=== PATIENT | male | born 1945 | race Caucasian/White ===

== ENCOUNTER 2021-09-23 16:54 | Inpatient (IN) ==
[2021-09-23 19:41] LABS: Basophils % 0.4 %; Eosinophils # 0.1 K/mcL (0.0-0.6); Eosinophils % 2.2 %; Hematocrit 22.3 % (37.5-50.1); Hemoglobin 6.6 g/dL (12.9-16.9); Immature Granulocytes % 0.4 % (0-4); Lymphocytes # 0.9 K/mcL (0.6-4.6); Lymphocytes % 16.8 %; Mean Corpuscular HGB Conc 29.6 g/dL (31.6-35.5); Mean Corpuscular Hemoglobin 27.5 pg (28.0-33.3); Mean Corpuscular Volume 92.9 fL (83.0-100.0); Mean Platelet Volume 11.7 fL (9.4-12.4); Monocytes # 0.7 K/mcL (0.0-1.3); Monocytes % 12.8 %; Neutrophils # 3.7 K/mcL (1.6-8.9); Platelet Count 186 K/mcL (140-400); Red Cell Distribution Width 15.1 % (11.5-14.5); Segmented Neutrophils % 67.4 %; White Blood Count 5.5 K/mcL (4.3-11.1)
[2021-09-23 19:51] LABS: INR 1.6; Prothrombin Time 18.2 Seconds (9.4-12.1)
[2021-09-23 19:53] LABS: Activated Partial Thrombo Time 32.3 Seconds (26.0-36.0)
[2021-09-23 20:12] LABS: Albumin 3.8 g/dL (3.5-5.7); Albumin/Globulin Ratio 1.2 (1.1-2.2); Bilirubin,Total 0.4 mg/dL (0.3-1.0); Calcium 9.5 mg/dL (8.6-10.3); Globulin 3.1 g/dL (2.4-3.5); Potassium 4.4 mEq/L (3.5-5.1); Total Protein 6.9 g/dL (6.4-8.9); Troponin I 0.08 ng/mL (< 0.04)
[2021-09-23] MEDS ORDERED: Perflutren Lipid Microsphere 1.3 ML in 0.9 % Sodium Chloride 8.7 ML IVP PRN (22:33)
[2021-09-23] MEDS ORDERED: Acetaminophen 325 MG TABLET PO PRN (22:35)
[2021-09-23] MEDS ORDERED: Naloxone 0.4 MG/ML INJ IVP PRN (22:35)
[2021-09-23] MEDS ORDERED: Ondansetron 4 MG/2 ML VIAL IVP PRN (22:35)
[2021-09-23] MEDS ORDERED: 0.9 % Sodium Chloride 250 ML ONE (22:43)
[2021-09-24 02:07] LABS: Potassium,Urine 42.6 mEq/L; Sodium, Urine 115.8 mEq/L
[2021-09-24 02:14] LABS: Bilirubin,Urine Negative (Negative); Blood,Urine Negative (Negative); Clarity,Urine Clear (Clear); Color,Urine Light-Yellow (Yellow); Glucose,Urine (UA) Normal (Normal); Ketones,Urine Negative (Negative); Leukocyte Esterase,Urine Moderate (Negative); Mucus,Urine Few per lpf (None-Few); Nitrite,Urine Negative (Negative); Protein,Urine 70 mg/dL (Neg-Trace); RBC,Urine 0-3 per hpf (0-3); Specific Gravity,Urine 1.018 (1.010-1.025); Squamous Epithelial Cell,Urine Few per hpf (None-Few); WBC,Urine 50-100 per hpf (0-3)
[2021-09-24 02:39] LABS: Basophils % 0.4 %; Eosinophils # 0.1 K/mcL (0.0-0.6); Eosinophils % 1.6 %; Hematocrit 21.5 % (37.5-50.1); Hemoglobin 6.4 g/dL (12.9-16.9); Immature Granulocytes % 0.2 % (0-4); Lymphocytes # 0.9 K/mcL (0.6-4.6); Lymphocytes % 16.9 %; Mean Corpuscular HGB Conc 29.8 g/dL (31.6-35.5); Mean Corpuscular Hemoglobin 26.7 pg (28.0-33.3); Mean Corpuscular Volume 89.6 fL (83.0-100.0); Mean Platelet Volume 11.5 fL (9.4-12.4); Monocytes # 0.7 K/mcL (0.0-1.3); Monocytes % 12.1 %; Neutrophils # 3.8 K/mcL (1.6-8.9); Platelet Count 177 K/mcL (140-400); Red Cell Distribution Width 15.3 % (11.5-14.5); Segmented Neutrophils % 68.8 %; White Blood Count 5.6 K/mcL (4.3-11.1)
[2021-09-24 02:47] LABS: INR 1.5; Prothrombin Time 17.1 Seconds (9.4-12.1)
[2021-09-24 02:56] LABS: % Iron Saturation 15 % (20-55); BUN/Creatinine Ratio 21 (6-26); Blood Urea Nitrogen 44 mg/dL (8-23); Calcium 9.2 mg/dL (8.6-10.3); Carbon Dioxide 27 mEq/L (23-29); Chloride 108 mEq/L (98-107); Chol/HDL Ratio 2.8 (0-4.9); Cholesterol 107 mg/dL (< 200); Glucose 109 mg/dL (70-105); HDL Cholesterol 38 mg/dL (40-59); Iron 57 mcg/dL (65-175); LDL Cholesterol,Calculated 58 mg/dL (< 100); Lactate Dehydrogenase 191 Units/L (140-271); Osmolality,Calculated 304 (280-300); Potassium 4.4 mEq/L (3.5-5.1); Sodium 141 mEq/L (136-145); Transferrin 276 mg/dL (203-362); Triglycerides 55 mg/dL (< 150); eGFR For African Americans 38 (> 60); eGFR For Non-African Americans 31 (> 60)
[2021-09-24 03:10] LABS: Thyroid Stimulating Hormone 1.534 mcIU/mL (0.340-5.600)
[2021-09-24 03:21] LABS: Ferritin < 8 ng/mL (20-250)
[2021-09-24 04:17] LABS: Estimated Average Glucose 123 mg/dl; Hemoglobin A1C 5.9 %
[2021-09-24] MEDS ORDERED: *HR* Metoprolol 5 MG/5 ML VIAL IVP ONE (05:27)
[2021-09-24 06:17] LABS: Basophils % 0.4 %; Eosinophils # 0.1 K/mcL (0.0-0.6); Eosinophils % 1.3 %; Hematocrit 23.8 % (37.5-50.1); Immature Granulocytes % 0.1 % (0-4); Lymphocytes # 1.2 K/mcL (0.6-4.6); Lymphocytes % 16.5 %; Mean Corpuscular HGB Conc 29.4 g/dL (31.6-35.5); Mean Corpuscular Hemoglobin 26.5 pg (28.0-33.3); Mean Corpuscular Volume 90.2 fL (83.0-100.0); Mean Platelet Volume 11.9 fL (9.4-12.4); Monocytes # 1.1 K/mcL (0.0-1.3); Monocytes % 15.7 %; Neutrophils # 4.7 K/mcL (1.6-8.9); Platelet Count 183 K/mcL (140-400); Red Blood Count 2.64 M/mcL (4.19-5.50); Red Cell Distribution Width 15.8 % (11.5-14.5); White Blood Count 7.1 K/mcL (4.3-11.1)
[2021-09-24] MEDS ORDERED: *HR* Heparin 5,000 UNIT/ML VIAL IVP PRN ×2 (06:31)
[2021-09-24] MEDS ORDERED: Heparin 25,000UNIT/250ML 1/2NS 25,000 UNIT/250 ML IV.SOLN IVC SCH ×3 (06:45→07:00)
[2021-09-24] MEDS ORDERED: Apixaban 5 MG TABLET PO SCH (09:00)
[2021-09-24 09:06] LABS: Hematocrit 23.8 % (37.5-50.1); Hemoglobin 7.3 g/dL (12.9-16.9); Mean Corpuscular HGB Conc 30.7 g/dL (31.6-35.5); Mean Corpuscular Hemoglobin 27.1 pg (28.0-33.3); Mean Corpuscular Volume 88.5 fL (83.0-100.0); Platelet Count 193 K/mcL (140-400); Red Blood Count 2.69 M/mcL (4.19-5.50); White Blood Count 7.2 K/mcL (4.3-11.1)
[2021-09-24] MEDS: Iron Sucrose Complex 400 MG in 0.9 % Sodium Chloride 250 ML IVPB SCH (09:11)
[2021-09-24] MEDS: Aspirin Enteric Coated 81 MG Tablet PO SCH (09:15)
[2021-09-24] MEDS: Pantoprazole 40 MG VIAL IVP SCH (09:18)
[2021-09-24] MEDS ORDERED: 0.9 % Sodium Chloride 250 ML ONE (10:56)
[2021-09-24] MEDS: Furosemide 40 MG/4 ML VIAL IVP SCH (12:26)
[2021-09-24] MEDS: carvediloL 6.25 MG TABLET PO SCH (16:10)
[2021-09-24] MEDS: amLODIPine 5 MG TABLET PO SCH (16:10)
[2021-09-24 16:49] LABS: Hemoglobin 7.7 g/dL (12.9-16.9)
[2021-09-25 05:42] LABS: Hematocrit 25.7 % (37.5-50.1); Mean Corpuscular HGB Conc 31.1 g/dL (31.6-35.5); Mean Corpuscular Hemoglobin 27.7 pg (28.0-33.3); Mean Corpuscular Volume 88.9 fL (83.0-100.0); Mean Platelet Volume 11.9 fL (9.4-12.4); Platelet Count 178 K/mcL (140-400); Red Blood Count 2.89 M/mcL (4.19-5.50); Red Cell Distribution Width 15.8 % (11.5-14.5); White Blood Count 7.7 K/mcL (4.3-11.1)
[2021-09-25 06:23] LABS: Folate 14.2 ng/mL (3.0-16.0)
[2021-09-25 06:39] LABS: Calcium 9.5 mg/dL (8.6-10.3)
[2021-09-25] MEDS: amLODIPine 5 MG TABLET PO SCH (08:15)
[2021-09-25] MEDS: Aspirin Enteric Coated 81 MG Tablet PO SCH (08:15)
[2021-09-25] MEDS: carvediloL 6.25 MG TABLET PO SCH ×2 (08:15→17:18)
[2021-09-25] MEDS: Pantoprazole 40 MG VIAL IVP SCH (08:15)
[2021-09-25] MEDS: Furosemide 40 MG/4 ML VIAL IVP SCH (08:15)
[2021-09-25] MEDS: Iron Sucrose Complex 400 MG in 0.9 % Sodium Chloride 250 ML IVPB SCH (10:48)
[2021-09-25] MEDS: Cyanocobalamin (B-12) 1,000 MCG/ML VIAL SQ SCH (11:00)
[2021-09-25] MEDS ORDERED: SODIUM CHLORIDE/NAHCO3/KCL/PEG 4,000 ML SOLN.RECON PO ONE (17:31)
[2021-09-26 06:24] LABS: Hematocrit 27.9 % (37.5-50.1); Hemoglobin 8.5 g/dL (12.9-16.9); Mean Corpuscular HGB Conc 30.5 g/dL (31.6-35.5); Mean Corpuscular Hemoglobin 27.1 pg (28.0-33.3); Mean Corpuscular Volume 88.9 fL (83.0-100.0); Mean Platelet Volume 12.1 fL (9.4-12.4); Platelet Count 183 K/mcL (140-400); Red Blood Count 3.14 M/mcL (4.19-5.50); Red Cell Distribution Width 15.3 % (11.5-14.5); White Blood Count 8.2 K/mcL (4.3-11.1)
[2021-09-26 06:46] LABS: Calcium 9.6 mg/dL (8.6-10.3); Magnesium 1.8 mg/dL (1.6-2.6)
[2021-09-26] MEDS: amLODIPine 5 MG TABLET PO SCH (08:15)
[2021-09-26] MEDS: Aspirin Enteric Coated 81 MG Tablet PO SCH (08:15)
[2021-09-26] MEDS: carvediloL 6.25 MG TABLET PO SCH (08:15)
[2021-09-26] MEDS: Cyanocobalamin (B-12) 1,000 MCG/ML VIAL SQ SCH (08:16)
[2021-09-26] MEDS: Pantoprazole 40 MG VIAL IVP SCH (08:18)
[2021-09-26] MEDS: Furosemide 40 MG/4 ML VIAL IVP SCH (08:18)
[2021-09-26] MEDS: Iron Sucrose Complex 400 MG in 0.9 % Sodium Chloride 250 ML IVPB SCH (08:19)
[2021-09-26 11:07] LABS: INR 1.3; Prothrombin Time 14.9 Seconds (9.4-12.1)
[2021-09-26] MEDS ORDERED: Lidocaine -MPF 2% 2 ML VIAL ONE (12:27)
[2021-09-26 16:14] VITALS: BP 168/71; PULSE 78; TEMP 97.7; O2SAT 94
[2021-09-26] MEDS ORDERED: carvediloL 6.25 MG TABLET PO SCH (17:00)
== END 2021-09-26 17:34 | disposition home or self-care (01) | DRG 280 ==
LOC: EMEROOARM 16:54 → 2NENU 16:54 → SUATTDRO 23:04 → 2NENU 23:48
PROVIDERS: ADMIT Internal Medicine; ATTEND Internal Medicine
PROC: ENDOEBX (2021-09-26 14:00)